=== PATIENT | male | born 1990 | race Caucasian/White ===

== ENCOUNTER 2017-01-19 00:03 | Emergency (ER) | payer SELFPAY ==
[2017-01-19 02:11] LABS: HEMOGLOBIN 14.9 gm/dl (14.0-17.5); RED BLOOD COUNT 4.85 M/UL (4.20-5.50)
[2017-01-19 02:37] LABS: BUN/CREATININE RATIO 17 (0-10)
== END 2017-01-19 03:10 ==
LOC: ER1 00:03
PROVIDERS: Family Medicine
DX: S22.42XA Multiple fractures of ribs, left side, initial encounter for closed fracture (principal); S22.31XA Fracture of one rib, right side, initial encounter for closed fracture; M25.512 Pain in left shoulder; V89.9XXA Person injured in unspecified vehicle accident, initial encounter; Y92.828 Other wilderness area as the place of occurrence of the external cause
CPT/HCPCS: 36415; 71260; 73030; 80053; 85025; 96374; 96376; 99285; J2270; J2405; J7050; Q9962